=== PATIENT | male | born 1980 | race Hispanic/Latino ===

== ENCOUNTER 2018-04-12 11:47 | Emergency (ER) | payer MEDICAID, OTHER, SELFPAY ==
[2018-04-12] MEDS ORDERED: HYDROcodone/Acetaminophen 5/325 mg Tablet ONE (12:04)
--- NOTE | 2018-04-12 13:18 | RAD ---
RADIOGRAPH LEFT FOREARM TWO VIEWS: History: 37-year-old male status post acute traumatic injury to the forearm. FINDINGS: There is no evidence of acute fracture of the radial or ulnar shafts. See separate report of wrist for description of findings of distal radius and ulna. IMPRESSION: No acute radial or ulnar shaft fractures. POS: [facility]
--- NOTE | 2018-04-12 13:21 | RAD ---
RADIOGRAPH LEFT WRIST THREE VIEWS: DATE: 04/12/2018 TIME: 12:04 p.m. HISTORY: A 37-year-old male status post acute traumatic injury to the left wrist. FINDINGS: Old, non-united, minimally displaced, well-corticated fracture fragment of the base of the ulnar styl oid process. Proximal to that, there is an obliquely oriented, short, linear lucency at the dorsal-u lnar edge of the distal ulna, just proximal to the ulnar styloid process, with minimal displacement. There is an old, healed fracture deformity of the distal radial metaphysis and epiphysis. No acute c arpal bone fracture is identified. If there is snuffbox tenderness that suggests an occult scaphoid fracture, then the general recommendation is immobilization and follow-up imaging in 5 to 10 days. IMPRESSION: 1. Short, oblique, essentially nondisplaced, linear lucency at the corner of the distal ulna. Uncer tain whether this is part of an old fracture or an acute fracture. 2. Adjacent to that, there is an old, non-united fracture at the base of the ulnar styloid process. 3. Old, healed fracture deformity of the distal radial metaphysis and epiphysis. POS: [facility]
== END 2018-04-12 12:52 | disposition home or self-care (01) ==
LOC: NAV ERS 11:47
DX: S52.612A Displaced fracture of left ulna styloid process, initial encounter for closed fracture (principal); F41.9 Anxiety disorder, unspecified; F17.210 Nicotine dependence, cigarettes, uncomplicated; Z79.899 Other long term (current) drug therapy; W23.0XXA Caught, crushed, jammed, or pinched between moving objects, initial encounter
CPT/HCPCS: 29125